=== PATIENT | female | born 1970 | race Caucasian/White ===

== ENCOUNTER 2017-10-03 00:12 | Day surgery (SDC) | payer BC ==
[~2017-10-03] VITALS: Ht 170.2 cm; Wt 71.2 kg
[~2017-10-03 00:12] MED LIST: CITA-139 PO; LEVO-3 PO; LIO25 PO; RIZA10TA3 PO
[2017-10-03] MEDS ORDERED: LIDOCAINE/SOD BICARB 8.4% SYR ID ONE (05:35)
[2017-10-03] MEDS ORDERED: NORMOSOL R SOLN(*) 1000 ML BAG 1,000 ML IV PRN (06:30)
[2017-10-03] MEDS ORDERED: FAMOTIDINE 20 MG TAB PO ONE (06:30)
[2017-10-03] MEDS ORDERED: MIDAZOLAM 2 MG/2 ML VIAL IVP ONE (06:30)
[2017-10-03 07:35] VITALS: BP 117/86
[2017-10-03 07:45] LABS: PLATELET COUNT, AUTOMATED 278 K/uL (150-450)
[2017-10-03] MEDS ORDERED: KETOROLAC 30 MG/ML VIAL ONE (09:08)
[2017-10-03] MEDS ORDERED: LIDOCAINE MPF 1% 5 ML VIAL ONE (09:08)
[2017-10-03] MEDS ORDERED: PROPOFOL EMUL(*) 10MG/ML 20 ML 40 ML ONE (09:08)
[2017-10-03] MEDS ORDERED: ONDANSETRON 4 MG/2 ML VIAL ONE (09:08)
[2017-10-03] MEDS ORDERED: DEXAMETHASONE SOD PHOS 10MG/ML ONE (09:08)
[2017-10-03] MEDS ORDERED: fentaNYL CITR 100 MCG/2 ML AMP ONE (09:36)
[2017-10-03] MEDS ORDERED: IBUPROFEN 800 MG TAB PO SCH (09:50)
[2017-10-03] MEDS ORDERED: LR(*) 1000 ML BAG 1,000 ML IV ONE (09:50)
[2017-10-03] MEDS ORDERED: ONDANSETRON 4 MG/2 ML VIAL IVP PRN (09:50)
[2017-10-03] MEDS ORDERED: APAP/HYDROCODONE 325/5 TAB PO PRN (09:50)
--- NOTE | 2017-10-03 09:50 | Post Operative Note ---
Operative Note - TRAINING DEVELOPMENT SPECIALIST Operative Day Date: Oct 03, 2017 Time: 09:47 Physicians Surgeon: Diana Brennan DO Anesthesia: GET Diagnosis Pre-Op Diagnosis: 47 y/o Multigravida female Heavy Menses AUB-O Post-Op Diagnosis: Same Procedure Findings: Normal appearing endometrium. Uterus sound 8.5 cm. Desicated endometrium post operatively Hysteroscopy fluids used: 250 cc NS deficit: 15 mL Length 5.5, width 3.8. Total Novasure time 65 sec. Procedure(s): Diagnostic Hysteroscopy with Novasure endometrial ablation Specimen Removed:(Maybe N/A): 0 Complications: 0 known Fluids Fluids: 750 cc Estimated Blood Loss: minimal u/o 100 Dictated Date OP Note Dictated: Oct 03, 2017 DIANA BRENNAN DO Oct 03, 2017 09:50
[2017-10-03] MEDS ORDERED: HYDR-4309 PO (09:54)
[2017-10-03] MEDS ORDERED: IBUP800T37 PO (09:54)
--- NOTE | 2017-10-03 09:56 | OB/GYN Discharge Summary ---
Discharge Summary Reason for Hosp/Final Diag: (1) Abnormal uterine bleeding (AUB) Hospital Course & Plan: Pt presented for scheduled endometrial ablation. Underwent procedure with no complications. Pt to follow up in the office in 2 weeks. Lates Vital Signs Vital Signs Date Time Temp Pulse Resp B/P (MAP) Pulse Ox O2 Delivery O2 Flow Rate FiO2 10/03/17 07:35 97.5 66 16 117/86 (96) 96 Room Air Weight (Pounds): 157 Result Diagram: 10/03/17 0735 Condition: Improved Discharge: Home Home Meds Active Scripts Ibuprofen (IBUPROFEN) 800 Mg Tablet, 1 TAB PO Q8H Y for CRAMPING, #30 TAB 0 Refills Prov:DIANA AKHTAR DO 10/03/17 Hydrocodone Bit/Acetaminophen (NORCO 5-325 TABLET) 1 Each Tablet, 1 EACH PO Q4- 6H Y for PAIN, #20 TAB 0 Refills Prov:DIANA AKHTAR DO 10/03/17 Reported Medications Rizatriptan Benzoate (RIZATRIPTAN) 10 Mg Tab.rapdis, 10 MG PO PRN 09/26/17 Liothyronine Sodium (LIOTHYRONINE SODIUM) 25 Mcg Tablet, 25 MCG PO QDAY 09/26/17 Levothyroxine Sodium (LEVOTHYROXINE SODIUM) 100 Mcg Tablet, 100 MCG PO QDAY, TAB 09/26/17 Citalopram Hydrobromide (CITALOPRAM HBR) 20 Mg Tablet, 20 MG PO QDAY, #5 TAB 09/26/17 [facility] [phone], Dr. Akhtar [phone] Follow up in: 2 wks PO Discharge Diet: As Tolerates, Resume Prior Admit Diet, Increase Fluid Intake Discharge Activity: As Tolerates, Pelvic Rest DIANA AKHTAR DO Oct 03, 2017 09:56
[2017-10-03 10:55] VITALS: BP 116/78
[2017-10-03 11:00] VITALS: BP 119/85
[2017-10-03 11:03] VITALS: BP 111/70
[2017-10-03 11:06] VITALS: BP 112/65
--- NOTE | 2017-10-06 12:25 | OPERATIVE REPORT 1 ---
EVENT DATE: October 03, 2017 SURGEON: Mike Brennan DO ANESTHESIOLOGIST: Nahum Francis MD ANESTHESIA: General endotracheal intubation. PREOPERATIVE DIAGNOSIS 1. 47-year-old multigravid female. 2. Heavy menses. 3. Abnormal uterine bleeding, ovulatory. POSTOPERATIVE DIAGNOSIS 1. 47-year-old multigravid female. 2. Heavy menses. 3. Abnormal uterine bleeding, ovulatory. PROCEDURE PERFORMED Diagnostic hysterectomy with NovaSure endometrial ablation. ESTIMATED BLOOD LOSS Minimal INTRAVENOUS FLUIDS 750 mL normal saline URINE OUTPUT 100 mL PATHOLOGY None COMPLICATIONS None known COUNTS Correct for all needles, laps, sponges, and instruments CONDITION Stable x2 HYSTEROSCOPIC FLUIDS 250 mL normal saline, deficit 15 mL. TOTAL NOVASURE TIME 65 seconds FINDINGS Normal appearing endometrium. Uterus sounded to 8.5 cm, desiccated endometrium postoperatively. INDICATION The patient is a 47-year-old multigravid female who presented to the clinic on multiple separate occasions for a complaint of heavy periods. The patient currently has a vasectomy as control and does not desire to be on hormonal control. Other options that were given to the patient include Mirena IUD with the understanding that there is no traceable amounts of hormone noted within the patient's blood system. Because of this, it has good indication for heavy menses. The patient declined and desired to proceed with surgical management. The patient was counselled initially on NovaSure endometrial ablation as well as hysterectomy. The patient desired to proceed with NovaSure endometrial ablation secondary to a busy work schedule and the ability to recover quickly. The patient was counselled accordingly and signed the appropriate consent. DESCRIPTION OF PROCEDURE The patient was taken to the operating room where she was placed under general anesthesia. Once general anesthesia was achieved, she was then placed in a dorsal lithotomy position. She was then prepped and draped in the usual sterile manner. A sterile speculum was placed in the vagina. The cervix was visualized and grasped with an Allis clamp. With cervix grasped, the uterus was sound to approximately 8.5 cm. With uterus sound, the difference between the internal os and the endometrial cavity was given to the senior database programmer as 5.5 cm , which was put into the NovaSure device. Hysteroscopy was performed. No polyps, masses, or lesions were noted. Pictures were taken, and the NovaSure device was then placed to the cervix and opened with a cavity width of 3.8 cm. The device was tested with vacuum seal noted, and the procedure was started. Total burn time with the NovaSure device was 1 minute 5 seconds, 65 seconds. At this point, hysteroscopy was once again performed. Noting desiccated endometrial tissue. At this point, hysteroscope was removed, Allis clamp was removed off the cervix, and the speculum was removed. At this point, the patient was cleaned, taken out of lithotomy position, and then transferred to the recovery room in stable condition. JORGE
== END 2017-10-03 10:53 | disposition home or self-care (01) ==
LOC: OR 00:12
PROVIDERS: ATTEND Student in an Organized Health Care Education/Training Program
DX: N92.0 Excessive and frequent menstruation with regular cycle (principal); N93.8 Other specified abnormal uterine and vaginal bleeding
CPT/HCPCS: 36415; 58563; 84443; 84703; 85025; J1100; J1885; J2001; J2405; J2704; J3010; J7120